=== PATIENT | male | born 1990 | race Two or more races ===

== ENCOUNTER 2018-03-23 04:28 | Inpatient (IN) | payer BC ==
[2018-03-23] MEDS: IV NORMAL SALINE 1000ML BAG 1,000 ML IV ×3 (05:06→09:32)
[2018-03-23 05:23] LABS: AMPHETAMINE/METHAMPHETAMINE NEG (NEG); BARBITURATES NEG (NEG); BENZODIAZEPINES NEG (NEG); CANNABINOIDS NEG (NEG); COCAINE NEG (NEG); ETHANOL, URINE NEG (NEG); METHADONE NEG (NEG); OPIATES NEG (NEG); PHENCYCLIDINE NEG (NEG)
[2018-03-23 05:33] LABS: ANION GAP 8 (6-14); BLOOD UREA NITROGEN 11 mg/dL (8-26); CALCIUM 9.4 mg/dL (8.5-10.1); CARBON DIOXIDE 25 mmol/L (21-32); CHLORIDE 103 mmol/L (98-107); CREATININE 0.9 mg/dL (0.7-1.3); GFR 99.8; GLUCOSE 106 mg/dL (70-99); POTASSIUM 3.7 mmol/L (3.5-5.1); SODIUM 136 mmol/L (136-145)
[2018-03-23 05:39] LABS: TROPONINI < 0.017 ng/mL (0.000-0.055)
[2018-03-23 05:44] LABS: ADD MAN DIFF? NO
[2018-03-23 05:47] LABS: BASO % 1 % (0-3); EOS % 4 % (0-3); HEMATOCRIT 40.2 % (39.0-53.0); HEMOGLOBIN 14.3 g/dL (13.0-17.5); LYMPH % 34 % (24-48); MEAN CORPUSCULAR HEMOGLOBIN 32 pg (25-35); MEAN CORPUSCULAR HGB CONC 36 g/dL (31-37); MEAN CORPUSCULAR VOLUME 89 fL (79-100); MONO % 15 % (0-9); NEUT % 46 % (31-73); PLATELET COUNT 201 x10^3/uL (140-400); RED BLOOD COUNT 4.53 x10^6/uL (4.30-5.70); RED CELL DISTRIBUTION WIDTH 12.6 % (11.5-14.5); WHITE BLOOD COUNT 6.4 x10^3/uL (4.0-11.0)
[2018-03-23 05:48] LABS: BASO # 0.1 x10^3/uL (0.0-0.2); EOS # 0.3 x10^3/uL (0.0-0.7); LYMPH # 2.2 x10^3/uL (1.0-4.8)
[2018-03-23] MEDS ORDERED: NITROGLYCERIN SUBLINGUAL 0.4 MG BOTTLE OF 25. SL (06:00)
[2018-03-23] MEDS ORDERED: ONDANSETRON PF 4 MG/2 ML VIAL. IV (06:00)
[2018-03-23] MEDS ORDERED: MORPHINE SULFATE 4 MG/ML DISP.SYRIN. IV (06:00)
[2018-03-23 09:50] LABS: TROPONINI < 0.017 ng/mL (0.000-0.055)
[2018-03-23 11:52] LABS: TROPONINI < 0.017 ng/mL (0.000-0.055)
== END 2018-03-24 16:25 | disposition home or self-care (01) | DRG 310 ==
LOC: ER 04:28 → 6 SOUTH 06:15
DX: R00.2 Palpitations (principal); I45.10 Unspecified right bundle-branch block
CPT/HCPCS: 36415; 71045; 71046; 80048; 80307; 84484; 85025; 93005; 93306; 99285; 99285-25; J7030